=== PATIENT | male | born 1985 | race Caucasian/White ===

== ENCOUNTER 2017-10-28 10:34 | Emergency (ER) | payer SELFPAY ==
[~2017-10-28] VITALS: Ht 177.8 cm; Wt 72.6 kg
[2017-10-28 10:35] VITALS: BP 147/98
[2017-10-28 11:22] LABS: BILIRUBIN, URINE NEGATIVE (NEGATIVE); GLUCOSE, URINE (UA) NEGATIVE (NEGATIVE); KETONES,URINE 1+ (NEGATIVE); LEUKOCYTE ESTERASE ,URINE 1+ (NEGATIVE); NITRITE,URINE NEGATIVE (NEGATIVE); PH,URINE 5 (4.5-8.0); PROTEIN,URINE 2+ (NEGATIVE); UROBILINOGEN,URINE NORMAL MG/DL (0.0-1.0)
[2017-10-28 11:26] LABS: APPEARANCE,URINE SLIGHTLY CLOUDY; COLOR,URINE YELLOW
[2017-10-28 13:27] VITALS: BP 130/90
--- NOTE | 2017-10-28 13:34 | Emergency Room Report ---
History of Present Illness General Chief Complaint: Overdose Source: Patient, EMS Present Illness HPI Patient stressed. Took 2 Xanax today. No SI or HI. [facility] called 911. They transported with hypertension. The run was for "overdose". Has been "partying " heavily recently. Denies depression. Patient without medical problems. No fevers, chills, chest pain, cough, NVD, dysuria, change in bowels, back or joint pain. Some stress with fiancee. Allergies: Coded Allergies: No Known Allergies (Unverified , 10/28/17) Patient History Past Medical History: see triage record Social History: Reports: smoking, drug use; Denies: alcohol use Social History Narrative artists' model - from [place] Reviewed Nursing Documentation: PMH: Agreed; PSxH: Agreed Nursing Documentation-[facility] Past Medical History: No History, Except For Review of Systems All Other Systems: negative except mentioned in HPI Physical Exam Vital Signs Date Time Temp Pulse Resp B/P (MAP) Pulse Ox O2 Delivery O2 Flow Rate FiO2 10/28/17 10:23 98.0 105 16 180/100 99 98.1 10/28/17 10:35 Room Air Sp02 EP Interpretation: reviewed, normal General Appearance: well appearing, no apparent distress, GCS 15 Head: normocephalic Eyes: bilateral eye PERRL, bilateral eye other ENT: moist mucus membranes Neck: supple Respiratory: lungs clear, normal breath sounds Cardiovascular #1: regular rate, rhythm Cardiovascular #2: 2+ radial (R) Gastrointestinal: normal inspection, normal bowel sounds, non tender, no mass, non-distended, scaphoid Musculoskeletal: back normal, gait/station normal, normal range of motion Neurologic: alert, oriented x3, staple laster III-XII nml as tested, motor strength/tone normal, DTRs symmetric, sensory intact, cerebellar normal, normal gait, speech normal Psychiatric: mood/affect normal - stressed, no suicidal/homicidal ideation Skin: normal inspection, warm/dry, other - tattoos Medical Decision Making Diagnostic Impression: Primary Impression: Substance abuse Additional Impressions: Situational stress Labile hypertension ER Course Patient with alleged overdose. DDX: substance abuse, OD, risk of respiratory depression. He denies self harm intent. States he was just "stressed". Evaluation with EKG, labs. Treatment with IV hydration. Cardiac observation with repeat neurologic evaluations. Patient requests no IV. Fear of needles. Agreed for observation and UA. If worsened, will establish IV and draw labs. UA with + mult substances. Patient remains alert and with stable VS. Incident with perla where she looked at texts in his phone and became angry. Threatens restraining order. She left. Discussed this with patient who states he "just need to go home". Denies SI or HI. Denies violence in relationship or lack of safety. Patient stable for outpatient observation and treatment. Laboratory Tests Test 10/28/17 11:10 Urine Color Yellow Urine Appearance Slightly cloudy Urine pH 5 (4.5-8.0) Urine Specific [place] 1.025 (1.005-1.035) Urine Protein 2+ (NEGATIVE) H Urine Glucose (UA) Negative (NEGATIVE) Urine Ketones 1+ (NEGATIVE) H Urine Blood Negative (NEGATIVE) Urine Nitrite Negative (NEGATIVE) Urine Bilirubin Negative (NEGATIVE) Urine Urobilinogen Normal MG/DL (0.0-1.0) Urine Leukocyte Esterase 1+ (NEGATIVE) H Urine RBC 0-2 /HPF (0 - 0) H Urine WBC 2-4 /HPF (0 - 0) Urine Squamous Epithelial Cells Occasional /LPF Urine Bacteria Few /HPF (NONE) Urine Hyaline Casts 0-2 /LPF (NONE) H Urine Mucus Moderate /LPF (NONE/OCC) H Urine Opiates Screen Positive (NEGATIVE) H Urine Barbiturates Screen Negative (NEGATIVE) Phencyclidine (PCP) Screen Negative (NEGATIVE) Urine Amphetamines Screen Negative (NEGATIVE) Urine Benzodiazepines Screen Positive (NEGATIVE) H Urine Cocaine Screen Positive (NEGATIVE) H Urine Marijuana (THC) Screen Positive (NEGATIVE) H EKG Diagnostic Results Rate: normal Rhythm: NSR ST Segments: no acute changes Rhythm Strip Diag. Results EP Interpretation: yes Rhythm: NSR, no PVC's, no ectopy Last Vital Signs Date Time Temp Pulse Resp B/P (MAP) Pulse Ox O2 Delivery O2 Flow Rate FiO2 10/28/17 13:46 97.8 70 16 130/90 98 Room Air 97.8 Status: improved Disposition: HOME, SELF-CARE Condition: Improved Adan Ruvalcaba M.D. Oct 28, 2017 13:34
[2017-10-28 13:46] VITALS: BP 130/90
== END 2017-10-28 14:03 | disposition home or self-care (01) ==
LOC: EDBD 10:34 → EMR 13:30
DX: F19.10 Other psychoactive substance abuse, uncomplicated (principal); I10 Essential (primary) hypertension; Z72.0 Tobacco use; Z63.0 Problems in relationship with spouse or partner
CPT/HCPCS: 80307; 81003; 93005; 99284